=== PATIENT | female | born 1980 | race Caucasian/White ===

== ENCOUNTER → 2021-10-10 | Outpatient (CLI) | payer SELFPAY ==
[~2021-10-10] VITALS: Ht 167.6 cm; Wt 57.0 kg
[~2021-10-10] MED LIST: ALDACTONE 100M100 MG PO; DESYREL 100MG100 MG PO; LASIX 40MG TABL40 MG PO; LEXAPRO 5MG5 MG PO
[2021-10-10 13:49] VITALS: BP 130/80; PULSE 80; TEMP 98.2
[2021-10-10 15:15] VITALS: BP 105/70; PULSE 77
== END ==
LOC: COL.RAD 13:07
PROVIDERS: Nurse Practitioner Family
DX: K70.11 Alcoholic hepatitis with ascites (principal); R14.0 Abdominal distension (gaseous); D69.6 Thrombocytopenia, unspecified
CPT/HCPCS: 19804